=== PATIENT | female | born 1990 | race Caucasian/White ===

== ENCOUNTER 2017-11-09 17:03 | Emergency (ER) | payer OTHER ==
[~2017-11-09] VITALS: Ht 162.6 cm; Wt 94.8 kg
[~2017-11-09 17:03] MED LIST: ACETAMINOPHEN PO; ALEVE220 MG PO; APAP500 PO; AUGMENTIN 875875 MG PO; BENADRYL25 MG PO; BIRTH CONTROL; COLACE 100 MG100 MG PO; DARVOCET-N 1001 EACH PO; HYDROCORTISONE30 G9 RE; IBUPROFEN 600600 M1 PO; IBUPROFEN 800800 M1 PO; IRON325 PO; LANOLIN56 GM; LEXAPRO20 MG; MACROBID 100 M100 M1 PO; NAPROSYN375 MG PO; NORCO 5-325 TA1 EACH PO; PENICILLIN V P500 MG PO; PHENERGAN 25 MG25 M1 PO; PREDNISONE 10 M10 MG PO; PREDNISONE 20 M20 M1 PO; PRENATAL PO; PROMETH-CODEIN 65 ML PO; TRILEPTAL 300300 MG; TUCKS MEDICATE1 EAC1; TYLENOL EX-STR500 M2 PO; VISTARIL 25 MG25 M1 PO; VITAMINC500 PO; [UNRECOGNIZED DRUG - OTHER] TP
[2017-11-09] MEDS ORDERED: PREDNISONE 20 M20 MG PO (18:01)
[2017-11-09 18:08] VITALS: BP 113/73
== END 2017-11-09 18:08 | disposition home or self-care (01) ==
LOC: M.ERS 17:03
DX: B34.9 Viral infection, unspecified (principal); N80.9 Endometriosis, unspecified; Z91.040 Latex allergy status; Z88.8 Allergy status to other drugs, medicaments and biological substances

== ENCOUNTER 2018-04-07 00:56 | Emergency (ER) | payer OTHER ==
[~2018-04-07] VITALS: Ht 162.6 cm; Wt 88.5 kg
[~2018-04-07 00:56] MED LIST changes: +PREDNISONE 20 M20 MG PO
[2018-04-07] MEDS ORDERED: NOHOMEMEDICATIONS (01:07)
[2018-04-07] MEDS ORDERED: TEMOVATE30 GM TOP (01:34)
[2018-04-07] MEDS ORDERED: HYDROXYZINE HCL25 M1 PO (01:35)
[2018-04-07 01:52] VITALS: BP 112/82
== END 2018-04-07 01:55 | disposition home or self-care (01) ==
LOC: M.ERS 00:56
DX: S80.861A Insect bite (nonvenomous), right lower leg, initial encounter (principal); S80.862A Insect bite (nonvenomous), left lower leg, initial encounter; Z91.040 Latex allergy status; Z88.8 Allergy status to other drugs, medicaments and biological substances; W57.XXXA Bitten or stung by nonvenomous insect and other nonvenomous arthropods, initial encounter; Y93.89 Activity, other specified; Y92.89 Other specified places as the place of occurrence of the external cause; Y99.8 Other external cause status

== ENCOUNTER 2019-01-14 19:52 | Emergency (ER) | payer OTHER ==
[~2019-01-14] VITALS: Ht 162.6 cm; Wt 97.5 kg
[~2019-01-14 19:52] MED LIST changes: +HYDROXYZINE HCL25 M1 PO; +NOHOMEMEDICATIONS; +TEMOVATE30 GM TOP
[2019-01-14] MEDS ORDERED: FLEXERIL (20:03)
[2019-01-14] MEDS ORDERED: DICLOFENAC SODI25 MG (20:06)
[2019-01-14 21:10] LABS: URINE BILIRUBIN NEGATIVE (Negative); URINE BLOOD NEGATIVE (Negative); URINE CLARITY CLEAR; URINE COLOR YELLOW; URINE GLUCOSE-RANDOM NEGATIVE (Negative); URINE KETONES NEGATIVE (Negative); URINE LEUKOCYTES-REFLEX TRACE (Negative); URINE NITRITE-REFLEX NEGATIVE (Negative); URINE PROTEIN NEGATIVE (Negative); URINE SPECIFIC GRAVITY >= 1.030 (1.005-1.030); URINE UROBILINOGEN 0.2 E.U./dl (0.2-1.0)
[2019-01-14 21:17] LABS: SQUAMOUS >10 Many /LPF (0-3)
[2019-01-14 21:18] LABS: CRYSTALS None Seen /LPF (None Seen); HYALINE CASTS 0-3 Few /LPF (None Seen); MUCUS 4-6 Moderate strn/LPF (None Seen)
[2019-01-14 21:19] LABS: URINE RBC None Seen /HPF (0-2); URINE WBC-REFLEX 0-5 Rare /HPF (0-5)
[2019-01-14] MEDS ORDERED: NORCO 5-325 TA1 EACH PO (22:01)
[2019-01-14] MEDS ORDERED: MEDROLDOSEPACK PO (22:01)
[2019-01-14 23:12] VITALS: BP 99/68
== END 2019-01-14 23:12 | disposition home or self-care (01) ==
LOC: M.ERS 19:52
PROVIDERS: Physician Assistant
DX: M54.5 Low back pain (principal); N80.9 Endometriosis, unspecified; Z91.040 Latex allergy status; Z88.8 Allergy status to other drugs, medicaments and biological substances; Z79.899 Other long term (current) drug therapy

== ENCOUNTER 2019-09-01 21:43 | Emergency (ER) | payer OTHER ==
[~2019-09-01] VITALS: Ht 162.6 cm; Wt 93.0 kg
[~2019-09-01 21:43] MED LIST changes: +DICLOFENAC SODI25 MG; +FLEXERIL; +MEDROLDOSEPACK PO
[2019-09-01 22:22] LABS: ABSOLUTE BASOPHILS 0.1 thou/uL (0.0-0.2); ABSOLUTE EOSINOPHILS 0.1 thou/uL (0.0-0.7); ABSOLUTE LYMPHOCYTES 3.1 thou/uL (0.8-5.3); ABSOLUTE MONOCYTES 0.7 thou/uL (0.0-1.2); ABSOLUTE NEUTROPHILS 4.8 thou/uL (1.6-8.1); BASOPHILS 0.6 %; EOSINOPHILS 1.4 %; HEMOGLOBIN 12.7 gm/dL (12.0-15.0); LYMPHOCYTES 35.1 %; MCH 28.6 pg (26.0-34.0); MCHC 33.4 g/dL (28.0-37.0); MCV 85.7 fL (80.0-100.0); MONOCYTES 7.9 %; MPV 7.2 fl. (7.2-11.1); NUCLEATED RBCS 0 /100WBC; PLATELET COUNT* 358 thou/uL (150-400); RBC 4.44 mil/uL (4.20-5.00); RDW-CV 13.6 % (10.5-14.5); WBC 8.8 thou/uL (4.0-11.0)
[2019-09-01 22:23] LABS: URINE BILIRUBIN NEGATIVE (Negative); URINE BLOOD NEGATIVE (Negative); URINE CLARITY CLEAR; URINE COLOR YELLOW; URINE GLUCOSE-RANDOM NEGATIVE (Negative); URINE KETONES NEGATIVE (Negative); URINE LEUKOCYTES TRACE (Negative); URINE NITRITE NEGATIVE (Negative); URINE PROTEIN NEGATIVE (Negative); URINE UROBILINOGEN 0.2 E.U./dl (0.2-1.0)
[2019-09-01 22:29] LABS: CREATININE 1.1 mg/dL (0.6-1.3); POTASSIUM 3.8 mmol/L (3.5-5.1)
[2019-09-01 22:32] LABS: MUCUS None Seen strn/LPF (None Seen); SQUAMOUS >10 Many /LPF (0-3); URINE WBC 6-15 Few /HPF (0-5)
[2019-09-01 22:33] LABS: CASTS None Seen /LPF (None Seen); CRYSTALS None Seen /LPF (None Seen)
[2019-09-01 22:34] LABS: AMP/METHAMP Negative (Negative); BARBITURATES Negative (Negative); BENZODIAZEPINES Negative (Negative); COCAINE Negative (Negative); METHADONE Negative (Negative); OPIATES Negative (Negative); PCP Negative (Negative); THC Negative (Negative)
[2019-09-01 22:35] LABS: URINE RBC None Seen /HPF (0-2)
[2019-09-01] MEDS ORDERED: FIORINAL 50-321 EACH PO (22:58)
[2019-09-01 23:10] VITALS: BP 140/90
== END 2019-09-01 23:14 | disposition home or self-care (01) ==
LOC: M.ERS 21:43
PROVIDERS: Nurse Practitioner
DX: R51 Headache (principal); R55 Syncope and collapse; N80.9 Endometriosis, unspecified; Z91.040 Latex allergy status; Z88.8 Allergy status to other drugs, medicaments and biological substances; Z79.899 Other long term (current) drug therapy

== ENCOUNTER 2019-09-07 14:09 | Emergency (ER) | payer OTHER ==
[~2019-09-07] VITALS: Ht 162.6 cm; Wt 95.3 kg
[~2019-09-07 14:09] MED LIST changes: +FIORINAL 50-321 EACH PO
[2019-09-07 15:01] VITALS: BP 116/84
== END 2019-09-07 15:02 | disposition home or self-care (01) ==
LOC: M.ERS 14:09
DX: J30.9 Allergic rhinitis, unspecified (principal); R51 Headache; Z91.040 Latex allergy status; Z88.8 Allergy status to other drugs, medicaments and biological substances